=== PATIENT | male | born 1995 | race African-American/Black ===

== ENCOUNTER 2021-06-28 11:06 | Emergency (ER) | payer OTHER ==
[~2021-06-28] VITALS: Ht 182.9 cm; Wt 81.7 kg
--- NOTE | ~2021-06-28 | EMS ---
[facility] [address] [place] [address] EMS Patient Care Report Name: SIENA ANTHONY Room #: REG YOJANA Sifuentes#: [id number] Admission: 06/28/21 Attend Phys: Discharge: Date of : [birth year] Report #: [id number] THIS REPORT FOR: //name// Report Transmitted: 06/28/2021 12:19 EMS Care Summary [place], [place]/[facility] Incident [id number] @ 06/28/2021 10:31 [address] / [place] [address] Patient SIENA ANTHONY Male, 26 Years 1995 Patient Address [address] [place] [address] Patient History Substance Abuse,Bipolar II Disorder,Schizophrenia,Anxiety, Patient Allergies No known allergies, Patient Medications None Reported, Chief Complaint DROWSY Disposition Transported No Lights/[place] Dispatch Reason Unknown Problem/Person Down Transported To [facility] Narrative M36 WAS DISPATCHED TO THE SCENE OF AN UNKNOWN, WHERE THE CALLING CONSTITUTION PARTY STATED AN INIDIVIDUAL WAS LYING IN A ASSINIBOINE AND [place] TRIBES AND WAS UNRESPONSIVE. M36 STAGED UNTIL PD DEEMED THE SCENE SECURE. ONCE PD ARRIVED ON SCENE AND SECURED THE SCENE WE MADE CONTACT WITH THE PT WHO WAS STANDING BESIDE THE ASSINIBOINE AND [place] TRIBES AND EXPLAINED HE WAS [facility] [address] [place] [address] EMS Patient Care Report Name: SIENA ANTHONY Room #: REG YOJANA Sifuentes#: [id number] Admission: 06/28/21 Attend Phys: Discharge: Date of : [birth year] Report #: [id number] SLEEPY. THE PT STATED THAT HE HAD SMOKED MARIJUANA PRIOR TO LYING IN THE ASSINIBOINE AND [place] TRI[place] WHICH WAS WHY HE WAS SO SLEEPY. THE PT WAS AMBULATORY AND ABLE TO WALK TO THE COT, WHERE SEAT BELTS WERE APPLIED. UPON ARRIVAL AT THE HOSPITAL THE PT WAS STILL AMBULATORY AND ABLE TO WALK INTO THE ER WHERE HE SEATED HIMSELF ONTO THE ER BED WHERE HAND RAILS WERE APPLIED WELL. REPORT GIVEN TO NURSE. Initial Vitals @10:57P: 73,R: 12,BP: 110/50,Pain: 0/10,GCS: 15,CO: 17,SpO2: 98,Revised Trauma: 12, @10:54P: 75,R: 12,BP: 114/72,Pain: 0/10,GCS: 15,Glucose: 106,SpO2: 97,Revised Trauma: 12, Assessments @10:50MENTAL:Event Oriented,Person Oriented,Time Oriented,Place Oriented,Other,SKIN:HEENT:Head/Face: No Abnormalities,Neck/Airway: No Abnormalities,LUNG SOUNDS:General: No Abnormalities,Left Upper: No Abnormalities,Right Upper: No Abnormalities,Left Lower: No Abnormalities,Right Lower: No Abnormalities,ABDOMEN:General: No Abnormalities,Left Upper: No Abnormalities,Right Upper: No Abnormalities,Left Lower: No Abnormalities,Right Lower: No Abnormalities,PELVIS//GI:No Abnormalities,EXTREMITIES:Left Arm: No Abnormalities,Right Arm: No Abnormalities,PULSE:NEURO:No Abnormalities, Impression Generalized Weakness Procedures @10:50ALS AssessmentResponse: UnchangedSucceeded@10:50BLS AssessmentResponse: Unchanged Timeline 10:28,Call Received 10:28,Dispatch Notified 10:31,Dispatched 10:31,En Route 10:46,On Scene 10:50,At Patient 10:50,ALS Assessment,Response: UnchangedSucceeded, 10:50,BLS Assessment,Response: Unchanged 10:54,BP: 114/72 M,PULSE: 75,RR: 12 R,SPO2: 97 Ox,ETCO2: ,B,PAIN: 0,GCS: 15, 10:56,Depart Scene 10:57,BP: 110/50 M,PULSE: 73,RR: 12 R,SPO2: 98 Ox,ETCO2: ,BG: ,PAIN: 0,GCS: 15, 11:01,At Destination 11:13,Call Closed Disclaimer [address] [address] EMS Patient Care Report Name: SIENA ANTHONY Room #: REG YOJANA Sifuentes#: [id number] Admission: 06/28/21 Attend Phys: Discharge: Date of : [birth year] Report #: [id number] v1.1 Copyright 2020 [employer] This EMS Care Summary contains data elements from the applicable legal record (which may be displayed differently). It is designed to provide pertinent information for the following purposes: continuity of care, clinical quality, and state data reporting. The complete legal record is available to ED staff and administrators of the receiving hospital in [facility]'s Patient Tracker. All data is provided "as is."
[2021-06-28 13:08] LABS: URINE BILIRUBIN NEGATIVE (Negative); URINE BLOOD NEGATIVE (Negative); URINE CLARITY CLEAR; URINE COLOR YELLOW; URINE GLUCOSE-RANDOM* NEGATIVE (Negative); URINE KETONES NEGATIVE (Negative); URINE LEUKOCYTES-REFLEX TRACE (Negative); URINE NITRITE-REFLEX NEGATIVE (Negative); URINE PROTEIN (DIPSTICK) NEGATIVE (Negative); URINE UROBILINOGEN 0.2 E.U./dl (0.2-1.0)
[2021-06-28 13:14] LABS: AMP/METHAMP POSITIVE (Negative); BARBITURATES Negative (Negative); BENZODIAZEPINES Negative (Negative); COCAINE POSITIVE (Negative); METHADONE Negative (Negative); OPIATES Negative (Negative); PCP POSITIVE (Negative)
[2021-06-28 13:35] LABS: ABSOLUTE NEUTROPHILS 3.2 thou/uL (1.4-8.2); BASOPHILS 0.5 % (0.0-2.0); EOSINOPHILS 5.5 % (0.0-3.0); HEMATOCRIT 39.8 % (42.0-52.0); HEMOGLOBIN 13.1 gm/dL (14.0-18.0); LYMPHOCYTES 34.6 % (24.0-44.0); MCH 29.5 pg (26.0-34.0); MCHC 32.8 g/dL (28.0-37.0); MONOCYTES 7.3 % (1.0-8.0); PLATELET COUNT 228 thou/uL (150-400); POLYS 52.1 % (36.0-66.0); RBC 4.43 mil/uL (4.50-6.00); RDW 14.2 % (10.5-14.5); WBC 6.2 thou/uL (4.0-11.0)
[2021-06-28 13:48] LABS: ANION GAP 6 mmol/L (7-16); BUN 6 mg/dL (7-18); CALCIUM 8.8 mg/dL (8.5-10.1); CHLORIDE 106 mmol/L (98-107); CO2 31 mmol/L (21-32); GLUCOSE 117 mg/dL (74-106); POTASSIUM 4.2 mmol/L (3.5-5.1); SODIUM 143 mmol/L (136-145)
[2021-06-28 13:54] LABS: ALBUMIN 3.4 g/dL (3.4-5.0); DIRECT BILIRUBIN 0.1 mg/dL (<0.1-0.2); SALICYLATE 4.2 mg/dL (2.8-20.0); SGOT 22 U/L (15-37); SGPT 23 U/L (16-63); TOTAL BILIRUBIN 0.6 mg/dL (0.2-1.0); TOTAL PROTEIN 6.9 g/dL (6.4-8.2)
[2021-06-28 18:45] VITALS: BP 120/66
== END 2021-06-28 18:45 | disposition home or self-care (01) ==
LOC: ER 11:06
PROVIDERS: Emergency Medicine
DX: F19.10 Other psychoactive substance abuse, uncomplicated (principal); F32.9 Major depressive disorder, single episode, unspecified; F41.9 Anxiety disorder, unspecified; F20.9 Schizophrenia, unspecified